=== PATIENT | female | born 1935 | race Caucasian/White ===

== ENCOUNTER 2020-04-10 14:45 | Outpatient (CLI) | payer OTHER, SELFPAY ==
[2020-04-10 15:59] LABS: Basophils Percent Auto 0.2 % (0.2-1.2); Eosinophils Percent Auto 0.5 % (0-4.4); Hematocrit 39.5 % (37.0-47.0); Hemoglobin 13.4 g/dL (12.0-15.0); Immature Granulocyte Absolute 0.03 K/mm3 (0.00-0.031); Immature Granulocyte Percent A 0.3 % (0-0.5); Lymphocytes Absolute Auto 1.35 K/mm3 (0.9-3.2); Lymphocytes Percent Auto 15.5 % (18.3-44.2); Mean Corpuscular HGB Conc 33.9 g/dl (32-36); Mean Corpuscular Hemoglobin 30.8 pg (26-34); Mean Corpuscular Volume 90.8 fl (80-100); Mean Platelet Volume 10.4 fl (7.4-10.4); Monocytes Absolute Auto 0.9 K/mm3 (0.1-0.6); Monocytes Percent Auto 9.8 % (2.6-8.5); Neutrophils Absolute Auto 6.4 K/mm3 (1.3-6.7); Neutrophils Percent Auto 73.7 % (45.5-73.1); Platelet Count Result 258 k/mm3 (150-375); Red Blood Count 4.35 M/mm3 (4.2-5.4); Red Cell Distribution Width 14.6 % (11.5-14.5); White Blood Count 8.7 K/mm3 (4.5-10.0)
[2020-04-10 16:20] LABS: Anion Gap 10 mmol/L (8-16); Blood Urea Nitrogen 17 mg/dL (7-17); Calcium 9.3 mg/dL (8.4-10.2); Carbon Dioxide 25 mmol/L (22-30); Chloride 99 mmol/L (98-107); Estimated Glomerular Filt Rate 48; Glucose 102 mg/dL (65-105); Potassium 3.5 mmol/L (3.4-5.0); Sodium 134 mmol/L (137-145)
== END 2020-04-10 14:46 | disposition home or self-care (01) ==
LOC: ANHLAB 14:49
PROVIDERS: PCP Family Medicine; Visit Provider Physician Assistant
DX: R10.9 Unspecified abdominal pain (principal); I10 Essential (primary) hypertension
CPT/HCPCS: 36415; 80048; 85025

== ENCOUNTER 2020-04-11 11:57 | Outpatient (CLI) | payer OTHER, SELFPAY ==
--- NOTE | ~2020-04-11 | CT_ITS ---
EXAMINATION: CT abdomen pelvis w con DATE: 04/11/2020 12:40 INDICATION: Left lower quadrant abdominal pain, nausea and constipation. TECHNIQUE: Computed tomography (CT) of the abdomen and pelvis was performed with 100 mL Omnipaque-350 intravenous contrast. Automated exposure control and iterative reconstruction technique were employe d. The dose-length product was 465.50 mGy-cm. COMPARISON: 02/23/2018 FINDINGS: Mild atelectasis in the bilateral lower lung zones with discoid atelectasis/scarring in the right mid dle lobe and lingula. Heart size is normal. Aortic valve calcification. No pericardial or pleural eff usion. Small sliding-type hiatal hernia. Unchanged mild intra and extra pelvic biliary ductal dilation likely related to prior cholecystectomy with surgical clips the gallbladder fossa. Spleen, pancreas and bilateral adrenal glands are normal. Multiple bilateral renal cysts the largest measuring 5.5 cm the left kidney. Moderate amount of stoo l scattered throughout the colon. There is moderate colonic diverticulosis with a sigmoid predominanc e. There is no adjacent inflammatory change to suggest diverticulitis. Small bowel is normal. The anne endix is not visualized. No pericecal inflammatory change to suggest acute appendicitis. Bladder is n ormal. The uterus is not identified and has likely been surgically resected. Small fat-containing umb ilical hernia. No pathologically enlarged abdominal or pelvic lymphadenopathy. Mild lumbar spondylosi s with chronic L5 left-sided pars interarticularis defect. Mild thoracic dextrocurvature with moderat e spondylosis. IMPRESSION: 1. Small sliding-type hiatal hernia. 2. Diverticulosis. Reviewed, dictated and finalized at location A.
== END 2020-04-11 11:58 | disposition home or self-care (01) ==
PROVIDERS: PCP Family Medicine; Visit Provider Family Medicine
DX: K59.00 Constipation, unspecified (principal); R10.32 Left lower quadrant pain; K44.9 Diaphragmatic hernia without obstruction or gangrene; K57.90 Diverticulosis of intestine, part unspecified, without perforation or abscess without bleeding
CPT/HCPCS: 74177; Q9967

== ENCOUNTER 2021-10-05 14:20 | Outpatient (CLI) | payer OTHER, SELFPAY ==
--- NOTE | ~2021-10-05 | CT_ITS ---
EXAMINATION: CT brain wo con EXAM DATE: 10/05/2021 14:42 INDICATION: R22.0 - Localized swelling, mass and lump, head. TECHNIQUE: Spiral CT of the head was performed without contrast. Axial, coronal and sagittal images were reviewed. The dose-length product (DLP) for this examination was 529.67 mGy-cm. The exposure w as tailored according to patient size, and iterative reconstruction (ASIR) was used as additional dos e reduction technique. There is no prior study for comparison. FINDINGS: There is no acute intraparenchymal hemorrhage. No evidence of intraparenchymal brain mass lesion. No evidence of acute infarction. Please note that initial head CT has limited sensitivity f or small or acute infarctions. There is mild periventricular and subcortical hypodensity, nonspecific but probably related to small vessel ischemic disease. There is mild prominence of the sulci and v entricles related to cerebral atrophy. There is intracranial carotid arteriosclerosis. There are n o extra-axial collections. There is no mass effect or midline shift. The orbits are unremarkable. Mild left posterior scalp swelling. The visualized sinuses and mastoid air cells are well aerated. IMPRESSION: 1. No acute intracranial findings. 2. Chronic age related findings. 3. Mild posterior scalp swelling. Reviewed, dictated and finalized at location A. T FEEDER
== END 2021-10-05 14:21 | disposition home or self-care (01) ==
LOC: ANHIMG 14:24
PROVIDERS: PCP Family Medicine; Visit Provider Nurse Practitioner Gerontology
DX: R93.0 Abnormal findings on diagnostic imaging of skull and head, not elsewhere classified (principal)
CPT/HCPCS: 70450

== ENCOUNTER 2022-07-19 11:44 | Outpatient (CLI) | payer OTHER, SELFPAY ==
--- NOTE | ~2022-07-19 | XR_ITS ---
XR chest 2V 07/19/2022 12:12 Indication: Productive cough Procedure: PA and lateral views of the chest Comparison: 01/22/2009 Findings: Heart size is normal. There is bibasilar atelectasis/scarring. No focal pneumonia, edema, p leural effusion or pneumothorax. No acute osseous abnormality.. Impression: 1: Bibasilar atelectasis/scarring. Reviewed, dictated and finalized at location A. NE [employer]IC Impression: 1: Bibasilar atelectasis/scarring.
== END 2022-07-19 11:45 | disposition home or self-care (01) ==
PROVIDERS: PCP Family Medicine; Visit Provider Physician Assistant
DX: R05.9 Cough, unspecified (principal); J98.11 Atelectasis
CPT/HCPCS: 71046

== ENCOUNTER → 2022-11-30 12:04 | Outpatient (CLI) | payer OTHER, SELFPAY ==
--- NOTE | ~2022-11-30 | MM_ITS ---
EXAMINATION: MM screening mine BI w jeannette HISTORY: Screening mammogram, family history of breast cancer in her mother. TECHNIQUE: Craniocaudal and mediolateral oblique 3-D tomosynthesis images were obtained and synthetic 2-D images were generated. CAD analysis was submitted and interpreted. COMPARISON: 04/13/2018, 12/07/2010, 12/03/2009 BREAST PARENCHYMAL COMPOSITION: There are scattered areas of fibroglandular density. FINDINGS: No suspicious mass, calcification, or architectural distortion are identified in either elvis ast to suggest malignancy. There has been no suspicious interval change. IMPRESSION: 1. No mammographic evidence of malignancy. 2. Recommend routine screening mammography while the patient remains in good health. BI-RADS Category 1: Negative Reviewed, dictated and finalized at location A. IMPRESSION: 1. No mammographic evidence of malignancy. 2. Recommend routine screening mammography while the patient remains in good he alth. BI-RADS Category 1: Negative
--- NOTE | ~2022-11-30 | DEXA_ITS ---
Bone Density Report Name: BETHANY MILLER Age: 87 Sex: Female Ethnicity: White Date of : 1935 Indication: osteopenia; monitoring treatment; height loss; hysterectomy; postmenopausal Referring Provider: LARISSA JONES Study: Bone densitometry was performed. Exam Date: November 30, 2022 Accession number: [id number] Bone Density: Region BMD T-score Z-score Classification AP Spine (L1-L4) 0.952 -0.9 2.0 Normal Femoral Neck (Left) 0.650 -1.8 0.7 Osteopenia Total Hip (Left) 0.890 -0.4 1.9 Normal Femoral Neck (Right) 0.744 -0.9 1.6 Normal Total Hip (Right) 0.875 -0.5 1.8 Normal Total Hip Mean 0.883 -0.5 1.9 Normal World Health Organization criteria for BMD impression classify patients as: Normal (T-score at or above -1.0), Osteopenia (T-score between -1.0 and -2.5), or Osteoporosis (T-score at or below -2.5). 10-year Fracture Risk(1): Major Osteoporotic Fracture 14% Hip Fracture 4.0% Reported Risk Factors: [place] (), Neck BMD=0.650, BMI=29.2 (1) FRAX(R) Version 3.08. Fracture probability calculated for an untreated patient. Fracture probability may be lower if the patient has received treatment. Previous Exams: Region Exam Age BMD T-score BMD Change BMD Change Date g/cm2 vs Baseline vs Previous AP Spine(L1-L4) 11/30/2022 87 0.952 -0.9 0.097* 0.097* 04/13/2018 82 0.855 -1.7 Total Hip(Left) 11/30/2022 87 0.890 -0.4 0.012 0.012 04/13/2018 82 0.878 -0.5 Total Hip(Right) 11/30/2022 87 0.875 -0.5 0.023 0.023 04/13/2018 82 0.853 -0.7 *Denotes significance at 95% confidence level, LSC for AP Spine = 0.022 g/cm2, LSC for Total Hip = 0.027 g/cm2 Clinical Information Provided by Patient: Is being treated for osteoporosis Has used the following medications: Fosamax (i.e. alendronate) Has the following medical conditions: Hysterectomy Patient maximum height was 59 Menopause Age: 42 No regular weight bearing exercise Does not regularly consume dairy products Onset of menses at age 15 Number of children 4 Impression: The patient has low bone mass, based on the Left Femoral Neck T-score. The patient has an estimated ten-year risk of hip fracture of 4% and an estimated ten-year risk of major fracture of 14%, based on the WHO FRAX algorithm. No significant bone loss was observed. Discussion: PATIENT UNDER TREATMENT WITH NO SIGNIFICANT BMD LOSS SINCE L
== END ==
PROVIDERS: PCP Family Medicine; Visit Provider Nurse Practitioner Gerontology
DX: Z12.31 Encounter for screening mammogram for malignant neoplasm of breast (principal); N95.9 Unspecified menopausal and perimenopausal disorder; M85.852 Other specified disorders of bone density and structure, left thigh
CPT/HCPCS: 77063; 77067; 77080

== ENCOUNTER 2024-05-04 12:50 | Outpatient (CLI) | payer OTHER, SELFPAY | END 2024-05-04 12:51 | disposition home or self-care (01) | LOC: ANHAUDIO 12:50 | PROVIDERS: PCP Family Medicine; Visit Provider Family Medicine | DX: H90.3 Sensorineural hearing loss, bilateral (principal); Z97.4 Presence of external hearing-aid; H61.23 Impacted cerumen, bilateral | CPT/HCPCS: 92557; 92567 ==